=== PATIENT | male | born 1960 | race Caucasian/White ===

== ENCOUNTER 2020-08-24 23:00 | Emergency (ER) | payer BC ==
[2020-08-24] MEDS ORDERED: Sodium Chloride 0.9% 10 ML Syringe FLUSH PRN (23:16)
--- NOTE | 2020-08-24 23:50 | EDM.PDOC ---
ED HPI GENERAL MEDICAL PROBLEM - General Chief Complaint: General Stated Complaint: dizziness, HTN Time Seen by Provider: 08/24/20 23:15 Source of Information: Reports: Patient History Limitations: Reports: No Limitations - History of Present Illness INITIAL COMMENTS - FREE TEXT/NARRATIVE: 59 YO WM PRESENTS TO ER COMPLAINING OF AN EPISODE OF DIZZINESS WHICH OCCURRED TONIGHT. PT REPORTS EPISODE LASTED FOR LESS THAN ONE MINUTE. PT STATES AFTER EPISODE HIS TOOK HIS BLOOD PRESSURE AND IT WAS ELEVATED AT 180/90 PROMPTING ER EVALUATION. PT DENIES HEADACHE, CHEST PAIN, SHORTNESS OF BREATH, NAUSEA, OR DIAPHORESIS. PT DENIES ANY KNOWN HISTORY OF HYPERTENSION. PT REPORTS TOBACCO USE 1/2 PPD. PT DENIES FEVER/CHILLS, COUGH OR CONGESTION. PT DENIES TAKING ANY MEDICATION AND DOESN'T HAVE A PCP OR SEE A PHYSICIAN DUE TO [facility]. PT REPORTS DIZZINESS HAS RESOLVED AND HE FEELS BETTER CURRENTLY Onset: Sudden Onset Date: 08/24/20 Duration: Minutes: Location: Reports: Generalized Severity: Mild Improves with: Reports: None Worsens with: Reports: None Associated Symptoms: Reports: No Other Symptoms. Denies: Confusion, Chest Pain, Cough, cough w sputum, Diaphoresis, Fever/Chills, Headaches, Loss of Appetite, Malaise, Nausea/Vomiting, Rash, Seizure, Shortness of Breath, Syncope, Weakness - Related Data Allergies Allergy/AdvReac Type Severity Reaction Status Date / Time No Known Drug Allergies Allergy Cannot Verified 08/24/20 23:40 Remember Home Meds: Home Meds lisinopriL [Lisinopril] 10 mg PO DAILY #30 tablet 08/25/20 [Rx] Past Medical History Cardiovascular History: Reports: High Cholesterol - Infectious Disease History Infectious Disease History: Reports: Chicken Pox, Measles, Mumps - Past Surgical History GI Surgical History: Reports: Hernia Repair/Other Social & Family History - Family History HEENT: Reports: Cataract, Glaucoma Cardiac: Reports: Pacemaker, Other (See Below) Other Cardiac Family History: hypotension Musculoskeletal: Reports: Arthritis Neurological: Reports: Alzheimers Disease, Dementia - Living Situation & Occupation Living situation: Reports: Occupation: Employed ED ROS GENERAL - Review of Systems Review Of Systems: See Below Constitutional: Reports: No Symptoms HEENT: Reports: No Symptoms Respiratory: Reports: No Symptoms Cardiovascular: Reports: Lightheadedness Endocrine: Reports: No Symptoms GI/Abdominal: Reports: No Symptoms : Reports: No Symptoms Musculoskeletal: Reports: No Symptoms Skin: Reports: No Symptoms Neurological: Reports: No Symptoms Psychiatric: Reports: No Symptoms Hematologic/Lymphatic: Reports: No Symptoms Immunologic: Reports: No Symptoms ED EXAM, GENERAL - Physical Exam Exam: See Below Exam Limited By: No Limitations General Appearance: Alert, WD/WN, No Apparent Distress Eye Exam: Bilateral Eye: EOMI, PERRL Ears: Normal External Exam, Normal Canal, Hearing Grossly Normal, Normal TMs Nose: Normal Inspection, Normal Mucosa, No Blood Throat/Mouth: Normal Inspection, Normal Lips, Normal Teeth, Normal Gums, Normal Oropharynx, Normal Voice, No Airway Compromise Head: Atraumatic, Normocephalic Neck: Normal Inspection, Supple, Non-Tender, Full Range of Motion Respiratory/Chest: No Respiratory Distress, Lungs Clear, Normal Breath Sounds, No Accessory Muscle Use, Chest Non-Tender Cardiovascular: Normal Peripheral Pulses, Regular Rate, Rhythm, No Edema, No Gallop, No JVD, No Murmur, No Rub GI/Abdominal: Normal Bowel Sounds, Soft, Non-Tender, No Organomegaly, No Distention, No Abnormal Bruit, No Mass Back Exam: Normal Inspection, Full Range of Motion, NT Extremities: Normal Inspection, Normal Range of Motion, Non-Tender, Normal Capillary Refill, No Pedal Edema Neurological: Alert, Oriented, CN II-XII Intact, Normal Cognition, Normal Gait, Normal Reflexes, No Motor/Sensory Deficits Psychiatric: Normal Affect, Normal Mood Skin Exam: Warm, Dry, Intact, Normal Color, No Rash Lymphatic: No Adenopathy #1 Interpretation EKG Date: 08/24/20 Time: 23:23 Rhythm: NSR Rate (Beats/Min): 82 [place]: Normal P-Wave: Present QRS: Normal ST-T: Normal QT: Normal Comparison: NA - No Prior EKG Course - Vital Signs Last Recorded V/S: Last Vital Signs Temp 36.3 C 08/24/20 23:05 Pulse 84 08/24/20 23:05 Resp 16 08/24/20 23:05 BP 172/97 H 08/24/20 23:05 Pulse Ox 94 L 08/24/20 23:05 - Orders/Labs/Meds Orders: Active Orders 24 hr Category Date Time Status EKG Documentation Completion [RC] ASDIRECTED Care 08/24/20 23:15 Active Peripheral IV Care [RC] . DIRECTED Care 08/24/20 23:16 Active Sodium Chloride 0.9% [Saline Flush] Med 08/24/20 23:16 Active 10 ml FLUSH Q8HR PRN Peripheral IV Insertion Adult [OM.PC] Routine Oth 08/24/20 23:16 Ordered EKG 12 Lead [EK] Stat Ther 08/24/20 23:15 Ordered Medication Orders Sodium Chloride (Saline Flush) 10 ml FLUSH Q8HR PRN PRN Reason: keep vein open Last Admin: 08/24/20 23:30 Dose: 10 ml Documented by: DOM Labs: Laboratory Tests 08/24/20 08/24/20 Range/Units 23:30 23:30 WBC 7.32 (5.00-10.00) 10^3/uL RBC 5.52 (4.50-6.00) 10^6/uL Hgb 15.8 (13.0-17.0) g/dL Hct 46.2 (40.0-52.0) % MCV 83.7 (82.0-92.0) fL MCH 28.6 (27.0-31.0) pg MCHC 34.2 (32.0-36.0) g/dL RDW 12.5 (11.5-14.5) % Plt Count 240 (150-400) 10^3/uL MPV 10.2 (7.4-10.4) fL Immature Gran % (Auto) 0.1 (0.0-5.0) % Neut % (Auto) 71.4 H (50.0-70.0) % Lymph % (Auto) 19.3 L (20.0-40.0) % [place] % (Auto) 7.4 (2.0-8.0) % Eos % (Auto) 1.5 (1.0-3.0) % Baso % (Auto) 0.3 (0.0-1.0) % Neut # (Auto) 5.23 (2.50-7.00) 10^3/uL Lymph # (Auto) 1.41 (1.00-4.00) 10^3/uL [place] # (Auto) 0.54 (0.10-0.80) 10^3/uL Eos # (Auto) 0.11 (0.10-0.30) 10^3/uL Baso # (Auto) 0.02 (0.00-0.10) 10^3/uL Immature Gran # (Auto) 0.01 (0.00-0.50) 10^3/uL Sodium 139 (136-145) mmol/L Potassium 4.2 (3.3-5.3) mmol/L Chloride 101 (98-115) mmol/L Carbon Dioxide 25.5 (21.0-32.0) mmol/L Anion Gap 16.7 H (5-15) mmol/L BUN 20 (6-25) mg/dL Creatinine 0.81 (0.51-1.17) mg/dL Est Cr Clr Drug Dosing 107.17 mL/min Estimated GFR (MDRD) > 60 mL/min Glucose 195 H (75 - 99) mg/dL Calcium 9.0 (8.7-10.3) mg/dL Total Bilirubin 0.5 (0.2-1.0) mg/dL AST 23 (15-37) U/L ALT 35 (12-78) U/L Alkaline Phosphatase 80 (46-116) IU/L Creatine Kinase 147 (26-276) U/L CK-MB (CK-2) 1.30 (0.00-4.30) ng/mL Troponin I 0.05 (0.00-0.070) ng/mL Total Protein 7.3 (6.4-8.2) g/dL Albumin 3.86 (3.00-4.80) g/dL Meds: Medications Generic Name Dose Route Start Last Admin Trade Name Freq PRN Reason Stop Dose Admin Sodium Chloride 10 ml 08/24/20 23:16 08/24/20 23:30 Saline Flush FLUSH 10 ml Q8HR PRN Administration keep vein open Departure - Departure Time of Disposition: 00:58 Disposition: Home, Self-Care 01 Condition: Good Clinical Impression: Dizziness, Hyperglycemia Hypertension Qualifiers: Hypertension type: essential hypertension Qualified Code(s): I10 - Essential (primary) hypertension - Discharge Information Prescriptions: lisinopriL [Lisinopril] 10 mg PO DAILY #30 tablet Instructions: Hypertension, Adult, [id number], Dizziness, [id number] Referrals: Ashley Larkin MD [Primary Care Provider] - Forms: ED Department Discharge Additional Instructions: 1. DISCHARGE HOME 2. LISINOPRIL 10MG DAILY 3. FOLLOW UP WITH DR ASHLEY JEFFERS FOR FURTHER MANAGEMENT OF BLOOD PRESSURE AND ELEVATED BLOOD SUGAR THIS WEEK 4. RETURN TO ER FOR WORSENING SYMPTOMS Sepsis Event Note (ED) - Focused Exam Vital Signs: Vital Signs Temp Pulse Resp BP Pulse Ox 08/24/20 23:05 36.3 C 84 16 172/97 H 94 L - My Orders Last 24 Hours: My Active Orders 08/24/20 23:15 EKG Documentation Completion [RC] ASDIRECTED EKG 12 Lead [EK] Stat 08/24/20 23:16 Peripheral IV Care [RC] . DIRECTED Sodium Chloride 0.9% [Saline Flush] 10 ml FLUSH Q8HR PRN Peripheral IV Insertion Adult [OM.PC] Routine - Assessment/Plan Last 24 Hours: My Active Orders 08/24/20 23:15 EKG Documentation Completion [RC] ASDIRECTED EKG 12 Lead [EK] Stat 08/24/20 23:16 Peripheral IV Care [RC] . DIRECTED Sodium Chloride 0.9% [Saline Flush] 10 ml FLUSH Q8HR PRN Peripheral IV Insertion Adult [OM.PC] Routine Assessment:: 1. DIZZINESS 2. HYPERTENSION 3. HYPERGLYCEMIA Plan: 1. DISCHARGE HOME 2. LISINOPRIL 10MG DAILY 3. FOLLOW UP WITH DR ASHLEY JEFFERS FOR FURTHER MANAGEMENT OF BLOOD PRESSURE AND ELEVATED BLOOD SUGAR THIS WEEK 4. RETURN TO ER FOR WORSENING SYMPTOMS
[2020-08-25 00:33] LABS: ANION GAP 16.7 mmol/L (5-15); CHLORIDE,CL 101 mmol/L (98-115); SODIUM,NA 139 mmol/L (136-145)
[2020-08-25] MEDS ORDERED: Lisinopril 10 MG Tab PO SCH (01:00)
[2020-08-25 05:09] VITALS: BP 154/88; PULSE 72
== END 2020-08-25 01:23 | disposition home or self-care (01) ==
LOC: KA.ED 23:00
DX: I10 Essential (primary) hypertension (principal); R73.9 Hyperglycemia, unspecified; Z79.899 Other long term (current) drug therapy
CPT/HCPCS: 36415; 80053; 82550; 82553; 84484; 85025; 93005; 99284; 99284-25; A9270-GY

== ENCOUNTER 2020-12-18 20:14 | Emergency (ER) | payer BC ==
[2020-12-18] MEDS: Sodium Chloride 0.9% 10 ML Syringe FLUSH PRN (20:45)
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
[2020-12-18 21:22] LABS: ANION GAP 14.1 mmol/L (5-15); CHLORIDE,CL 104 mmol/L (98-107); SODIUM,NA 142 mmol/L (136-145)
[2020-12-18] MEDS: Enalaprilat 1.25 MG/ML SDV IVPUSH ONE (21:33)
[2020-12-19 00:11] VITALS: PULSE 65
[2020-12-19 00:12] VITALS: BP 144/89
== END 2020-12-18 22:11 | disposition home or self-care (01) ==
LOC: KA.ED 20:14
DX: I10 Essential (primary) hypertension (principal); G47.9 Sleep disorder, unspecified; R06.83 Snoring; F17.210 Nicotine dependence, cigarettes, uncomplicated; E78.00 Pure hypercholesterolemia, unspecified; Z79.899 Other long term (current) drug therapy
CPT/HCPCS: 36415; 80053; 84484; 85025; 93005; 96374; 99284; 99284-25